=== PATIENT | male | born 1985 | race Caucasian/White ===

== ENCOUNTER 2019-08-30 08:23 | Emergency (ER) | payer OTHER ==
[~2019-08-30] VITALS: Ht 180.3 cm; Wt 77.4 kg
[2019-08-30 08:32] VITALS: BP 140/87
--- NOTE | 2019-08-30 08:53 | NUR ---
REPORTS HAVING BILAT FEET PAIN, BILSTERS NOTED ON BOTH FEET. HAS NEW SHOES AND CHANGES SOCKS ALL THE TIME. FEET ARE CLEAN. REPORTS WALKING ALOT
[2019-08-30] MEDS ORDERED: NEOSPORIN OINT. PKT 1 PACKET ONE (09:51)
--- NOTE | 2019-08-30 11:13 | NUR ---
Wounds to bilateral feet irrigated then scrubbed with betadine brush. Then neosporin applied followed by bulky dressing. 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
== END 2019-08-30 11:17 | disposition home or self-care (01) ==
LOC: ED 08:54
DX: S90.822A Blister (nonthermal), left foot, initial encounter (principal); S90.821A Blister (nonthermal), right foot, initial encounter; Z20.828 Contact with and (suspected) exposure to other viral communicable diseases; B34.9 Viral infection, unspecified; R05 Cough; X58.XXXA Exposure to other specified factors, initial encounter; Y93.89 Activity, other specified; Y92.89 Other specified places as the place of occurrence of the external cause; Y99.8 Other external cause status
CPT/HCPCS: 71045; 99284; U0001

== ENCOUNTER 2019-10-11 16:15 | Emergency (ER) | payer OTHER ==
[~2019-10-11] VITALS: Ht 177.8 cm; Wt 75.0 kg
[2019-10-11 16:30] VITALS: BP 119/62
[2019-10-11] MEDS ORDERED: LIDOCAINE-MPF 1%, 5ML ONE (17:34)
[2019-10-11] MEDS ORDERED: CEPHALEXIN 500 MG CAPSULE PO ONE (18:00)
[2019-10-11] MEDS ORDERED: LIDOCAINE-MPF 1%, 5ML INFIL ONE (18:00)
[2019-10-11] MEDS ORDERED: CEPHALEXIN 500 MG CAPSULE ONE (18:09)
[2019-10-11] MEDS ORDERED: KETOROLAC 30 MG/1 ML ONE (18:17)
[2019-10-11] MEDS ORDERED: KETOROLAC 30 MG/1 ML IM ONE (18:30)
--- NOTE | 2019-10-11 19:00 | NUR ---
REPORT FROM CLYDE SIMS.
== END 2019-10-11 19:08 | disposition home or self-care (01) ==
LOC: ED 18:07
DX: S60.413A Abrasion of left middle finger, initial encounter (principal); L03.012 Cellulitis of left finger; X58.XXXA Exposure to other specified factors, initial encounter; Y93.89 Activity, other specified; Y92.89 Other specified places as the place of occurrence of the external cause; Y99.8 Other external cause status
CPT/HCPCS: 73130; 96372; 99284; J1885